=== PATIENT | male | born 1950 | race Caucasian/White ===

== ENCOUNTER 2016-06-09 11:58 | Day surgery (SDC) | payer MEDICARE, OTHER ==
[2016-06-08 11:30] LABS: HEMATOCRIT 38.9 % (40.0-51.0); HEMOGLOBIN 13.4 g/dL (13.6-17.8)
[2016-06-08 12:07] LABS: BUN (BLOOD UREA NITROGEN) 17 MG/DL (6-23); CALCIUM, SERUM 8.9 MG/DL (8.5-10.4); CHLORIDE, SERUM 104 MMOL/L (96-112); CO2 (CARBON DIOXIDE) 30 MMOL/L (24-34); CREATININE 1.19 MG/DL (0.70-1.30); GFR AFRICAN AMERICAN 74 ML/MIN (>=60); GFR NON AFRICAN AMERICAN 64 ML/MIN (>=60); GLUCOSE, SERUM 94 MG/DL (60-99); POTASSIUM, SERUM 4.1 MMOL/L (3.5-5.3); SODIUM, SERUM 144 MMOL/L (135-148)
--- NOTE | ~2016-06-09 | OP ---
Record Of Operation [facility] [address] [place]. [address] NAME: YOLANDE ERNANDEZ PH D : 52 STATUS : REG [facility]#: [id number] AGE: 66 ADM/REG DATE : 06/09/16 MR#: [id number] REPORT SERV DATE: 06/09/16 DICTATED BY: ARIEL OCONNOR III DATE: 06/09/16 REPORT STATUS : Draft TRANSCRIBED BY: MODL DATE: 06/09/16 DATE OF PROCEDURE: 06/09/2016 PREOPERATIVE DIAGNOSIS: Recurrent rotator cuff tear, right shoulder. POSTOPERATIVE DIAGNOSIS: Recurrent rotator cuff tear, right shoulder. SURGICAL PROCEDURE PERFORMED: 1. Arthroscopic decompression, acromioplasty, and subacromial bursectomy, right shoulder. 2. Mini open repair of recurrent rotator cuff tear, supraspinatus tendon, right shoulder with Mitek 5.5 double Healix suture anchor x1, and suture anchor x2 double row technique, Versalok suture anchor x2, double row technique. SURGEON: Ariel Oconnor M.D. AEROSPACE ASSEMBLER: Linda Sam. ANESTHESIA: General. ANTIBIOTICS: Ancef 1 g. COMPLICATIONS: None. POSITION: Beach chair. MEDICATIONS: Interscalene block for postoperative pain control. PROCEDURE IN DETAIL: The patient was brought to the operative room, placed on the table in supine position, and general anesthesia was induced. Ancef 2 g was administered intravenously in the operating room, an interscalene block was provided per Anesthesia Department for postoperative pain control. The patient was positioned in a beach chair type position. Right shoulder and upper extremity were entirely prepped and draped in the usual sterile fashion with a pneumonic arm peralta in place. Assuring anesthesia, a posterior portal was provided. The arthroscope was inserted. The glenohumeral joint was instilled with sterile normal saline. Articular surfaces of glenohumeral joint were normal. Anterior, posterior, and inferior capsule labral structures were normal. The biceps tendon appeared to be normal. Subscapularis appeared to be normal. The undersurface of the rotator cuff tendon revealed some old sutures, it was very thin, and it appeared to have healed back with a bursal type tissue at the insertion with stretched out sutures. At this point, the arthroscope was switched to the subacromial space. A small the lateral portal was created. A 4.5 shaver was used to debride the thickened bursal tissue in the subacromial space. Electrocautery was used to cauterize the undersurface of the acromion. A high-speed babar was used to perform a decompression acromioplasty. The bursal surface side of the rotator cuff complex was thin, and it appeared as though it healed back with bursal tissue. At this point, the lateral portal was enlarged to about 2 inches. The deltoid was split. Self-retaining Gelpi retractor was placed in the wound. [employer] was Record Of Operation [address] [address] NAME: YOLANDE ERNANDEZ PH D : 51 STATUS : REG [facility]#: [id number] AGE: 66 ADM/REG DATE : 06/09/16 MR#: [id number] REPORT SERV DATE: 06/09/16 DICTATED BY: ARIEL OCONNOR III DATE: 06/09/16 REPORT STATUS : Draft TRANSCRIBED BY: MODHarry DATE: 06/09/16 placed underneath the acromion to elevated it. The bursal tissue just distal to the sutures was incised. The supraspinatus tendon had been retracted. An awl was used to create a hole for the 5.5 double Healix suture anchor which was placed just medial to the greater tuberosity. This was double-armed, these so sutures were weaved to the tendon, and the tendon was advanced, these were all tied down pulling the tendon down to the bone. Each leading suture was then passed through a Versalok and anchored down distally in the proximal humerus for a double row technique, two Versalok were used for this double row technique. Arthroscopic pictures were obtained of the repair. Thorough irrigation was carried out. The deltoid was repaired with running 0 Vicryl. Subcutaneous tissue was closed with 2-0 Vicryl. The skin was closed with running 4-0 Monocryl. Benzoin and Steri-Strips were applied, followed by a DonJoy sling. The patient tolerated the procedure well and brought to recovery in satisfactory condition. There were no intraoperative, postoperative, or anesthetic complications. All instrument, needle, sponge, and lap counts were correct. MELISSA/DARYA Ariel Oconnor III, M.D. / [id number] CC: Mi Malone III, GEORGE N.
[~2016-06-09 11:58] MED LIST: ASA5GR PO; CLIN200; CRESTOR10 PO; CRESTOR20 MG PO; CYMBALTA30 PO; FLEX; FLEX PO; IRON; IRON325 MG PO; LIPITOR20 PO; LISINOPRIL40 MG PO; LOP25 PO; LOP50; LORCET PO; MOBIC7.5 PO; NAP250; NAP500 PO; NATURA2 OPH; NEUR300 PO; PCET PO; PRIN10 PO; PRIN5 PO; REM15 PO; REST15 PO; SLOWMAG PO; TOPXL25 PO; V5 PO; VIST50; VIST50 PO; XANAX2 MG PO; ZANAFLEX 4 MG TA4 MG PO; ZESTRIL20 MG PO; ZESTRIL40 MG PO; ZOCOR10 PO
== END 2016-06-09 23:59 | disposition home or self-care (01) ==
LOC: MSC 11:58
PROVIDERS: Orthopaedic Surgery
PROC: 0RNJ4ZZ Release Right Shoulder Joint, Percutaneous Endoscopic Approach (ICD-10-PCS; 2016-06-09)
PROC: 0LQ14ZZ Repair Right Shoulder Tendon, Percutaneous Endoscopic Approach (ICD-10-PCS; principal; 2016-06-09 14:45)
DX: M75.101 Unspecified rotator cuff tear or rupture of right shoulder, not specified as traumatic (principal); I25.10 Atherosclerotic heart disease of native coronary artery without angina pectoris; Z95.5 Presence of coronary angioplasty implant and graft; I25.2 Old myocardial infarction; M79.7 Fibromyalgia; F31.9 Bipolar disorder, unspecified
CPT/HCPCS: 80048; 85014; 85018; 93005; A9270-GY; C1713; J0690; J1040; J2250; J2370; J2710; J2795; J3010